=== PATIENT | male | born 1975 | race Caucasian/White ===

== ENCOUNTER → 2016-09-27 | Outpatient (CLI) | payer OTHER ==
[~2016-09-27] MED LIST: ARIP1TAB8 PO; DIAZ10TA PO; MELA1TAB5 PO; OMEP40CA41 PO; QUET1TAB37 PO
--- NOTE | 2016-09-27 08:02 | DIAGNOSTIC IMAGING REPORT ---
MRI OF THE BRAIN WITHOUT IV CONTRAST CLINICAL HISTORY: Headache. Dizziness. Dyspnea on exertion. COMPARISON STUDY: No priors. TECHNIQUE: MRI of the brain was performed utilizing various T1 and T2-weighted sequences in the axial, sagittal, and coronal planes. IV contrast was not administered for this examination. FINDINGS: Brain parenchyma: The brain parenchyma is normal in appearance. There is no hemorrhage or mass effect. There is no restricted diffusion to suggest acute ischemia. Awan-white matter differentiation is preserved. No extra-axial fluid collection is seen. The cerebellar tonsils are normal in configuration. Ventricles, sulci, and cisterns: Normal in configuration. Pituitary and sella: Unremarkable. Intracranial vasculature: Normal flow voids are maintained at the skull base. Orbits: The bony orbits are grossly intact. Orbital contents are normal in appearance. Sinuses and mastoids: Clear. Calvarium: Unremarkable. Cervical cord: Partially visualized cervical spinal cord is normal in morphology and signal intensity. IMPRESSION: No acute intracranial abnormality. Electronically signed by: Smith Zamudio M.D. 09/27/2016 8:00 AM Dictated Date/Time: 09/27/2016 7:58 AM
--- NOTE | 2016-09-27 08:53 | DIAGNOSTIC IMAGING REPORT ---
ABDOMEN COMPLETE (US) CLINICAL HISTORY: Hepatitis C. COMPARISON STUDY: No previous studies for comparison. FINDINGS: Liver morphology is normal. No hepatic lesions are identified by sonography. The gallbladder is partially contracted. There are no gallstones. The pancreas is sonographically normal. Caliber of the common bile duct is at the upper limits of normal. There is no intrahepatic biliary ductal dilatation. The size of the spleen is normal. The right kidney measures 10.9 cm in maximal dimension and the left measures 12.2 cm. There is no hydronephrosis. There are suspected bilateral renal calculi which measure up to approximately 6 mm. The caliber of the abdominal aorta is normal. Visualized portions of the IVC are patent. There is no ascites. IMPRESSION: 1. No gallstones or biliary ductal dilatation. 2. Normal liver morphology. No hepatic lesions identified by sonography. 3. Suspected bilateral nephrolithiasis. Electronically signed by: Hai Turner M.D. 09/27/2016 8:51 AM Dictated Date/Time: 09/27/2016 8:48 AM
--- NOTE | 2016-09-27 09:07 | DIAGNOSTIC IMAGING REPORT ---
DOPPLER ULTRASOUND OF THE MAJOR HEPATIC VESSELS CLINICAL HISTORY: Hepatitis C. COMPARISON STUDY: No previous studies for comparison. TECHNIQUE: Color duplex Doppler sonography of the major hepatic vessels was performed. FINDINGS: The main, left and right portal veins are patent with appropriately directed flow. The middle, left and right hepatic veins are patent with appropriate phasicity. The hepatic artery is patent. IMPRESSION: Patent major hepatic vessels with appropriately directed flow. Electronically signed by: Hai Turner M.D. 09/27/2016 9:05 AM Dictated Date/Time: 09/27/2016 9:04 AM
--- NOTE | 2016-09-28 13:37 | MYOCARDIAL PERFUSION SCAN ---
ONE-DAY NUCLEAR MEDICINE TECHNETIUM-99M CARDIOLITE MYOCARDIAL PERFUSION SCAN CLINICAL HISTORY: The patient presents for stress testing due to exertional dyspnea. COMPARISON: None. TECHNIQUE: For the stress portion of the study, 31.6 mCi of Technetium 99 m Cardiolite IV was injected at 11:40 a.m. on 09/27/2016. Fifteen minutes following the injection, imaging of the heart was performed in multiple projections. For the rest portion of the study, 11.0 mCi of Technetium 99 m Cardiolite was injected IV at 9:30 a.m. One hour following the injection, imaging of the heart was performed in the same projections. EXERCISE TREADMILL TESTING: The patient exercised for 3 minutes on a standard Mark protocol attaining 4.6 METS and a peak heart rate of 134 beats per minute (75% predicted maximum). The test was terminated due to dyspnea. The patient did not experience chest discomfort. Initial blood pressure was 110/75 and this increased to 140/75 at peak exertion. Baseline EKG shows normal sinus rhythm with repolarization changes. There are no ST segment changes seen with exercise. There are no dysrhythmias. FINDINGS: The short axis, vertical long axis, horizontal long axis images were reviewed in detail. There is normal myocardial perfusion at both stress and rest excluding a prior myocardial infarction and stress induced myocardial ischemia. The left ventricle demonstrates normal systolic function without wall motion abnormalities. An ejection fraction is calculated at 68%. IMPRESSION: 1. No scintigraphic evidence of a myocardial infarction or stress-induced myocardial ischemia. 2. Limited exercise tolerance. 3. Exercise limited by dyspnea. 4. No EKG changes. 5. Normal left ventricle systolic function without wall motion abnormality. Left ventricular ejection fraction is 68%.
== END | disposition home or self-care (01) ==
LOC: C.MRI 07:14
PROVIDERS: ATTEND Family Medicine
DX: B19.20 Unspecified viral hepatitis C without hepatic coma (principal); R06.09 Other forms of dyspnea; R51 Headache

== ENCOUNTER 2016-11-01 13:44 | Emergency (ER) | payer OTHER ==
[~2016-11-01] VITALS: Ht 177.8 cm; Wt 62.2 kg
[2016-11-01 14:01] VITALS: TEMP 36.3; Ht 177.8 cm; Wt 62.2 kg
[2016-11-01] MEDS ORDERED: SODIUM CHLORIDE 0.9% 1000ML 1,000 ML IV STA (14:28)
[2016-11-01] MEDS ORDERED: DiphenhydrAMINE HCL 50 MG/ML VIAL IV STA (14:28)
[2016-11-01] MEDS ORDERED: PROCHLORPERAZINE 5 MG/ML 2 ML VIAL IV STA (14:28)
[2016-11-01] MEDS ORDERED: OPTIRAY 320 IV PRN (14:45)
[2016-11-01 14:55] LABS: BASO % 0.4 %; BASO ABS # 0.03 K/uL (0-0.2); COMPLETE YES; HEMATOCRIT 43.2 % (42-52); IG% 0.1 %; LYMPH % 28.1 %; LYMPH ABS # 2.01 K/uL (1.2-3.4); MEAN CORPUSCULAR HEMOGLOBIN 35.4 pg (25-34); MEAN CORPUSCULAR HGB CONC 36.1 g/dl (32-36); MEAN PLATELET VOLUME 9.8 fL (7.4-10.4); MONO % 6.3 %; NEUT % 64.1 %; PLATELET COUNT 163 K/uL (130-400); RED BLOOD COUNT 4.41 M/uL (4.7-6.1); WHITE BLOOD COUNT 7.15 K/uL (4.8-10.8)
[2016-11-01 15:13] LABS: BUN/CREATININE RATIO 14.8 (10-20); C-REACTIVE PROTEIN 0.38 mg/dl (0-0.29); CALCIUM 9.2 mg/dl (8.5-10.1); CREATININE 0.83 mg/dl (0.60-1.40); MAGNESIUM 2.3 mg/dl (1.8-2.4); POTASSIUM 4.2 mmol/L (3.5-5.1)
[2016-11-01 15:19] LABS: INR 1.1 (0.9-1.1); PARTIAL THROMBOPLASTIN RATIO 1.2; PROTHROMBIN TIME (PATIENT) 11.5 SECONDS (9.0-12.0)
[2016-11-01] MEDS ORDERED: ARIP1TAB8 PO (15:49)
[2016-11-01] MEDS ORDERED: QUET1TAB37 PO (15:49)
[2016-11-01] MEDS ORDERED: DIAZ10TA PO (15:49)
[2016-11-01] MEDS ORDERED: MELA1TAB5 PO (15:49)
[2016-11-01] MEDS ORDERED: OMEP40CA41 PO (15:49)
--- NOTE | 2016-11-01 15:51 | DIAGNOSTIC IMAGING REPORT ---
CT OF THE ABDOMEN AND PELVIS WITH CONTRAST CLINICAL HISTORY: Abdominal pain, nausea and fatigue. COMPARISON STUDY: Abdominal ultrasound September 27, 2016. TECHNIQUE: Following IV administration of 115 mL of Optiray-320, axial images of the abdomen and pelvis were obtained from the lung bases to the proximal femurs. Images were reviewed in the axial, sagittal, and coronal planes. IV contrast was administered without complication. CT DOSE: 276.29 mGy.cm FINDINGS: Lung bases are clear. There is no pneumatosis, free air or portal venous gas. The liver morphology is normal. Note is made of a 2.2 cm subcapsular hypodense segment 7 hepatic lesion. There is also a 1.2 cm subcapsular segment 3 hepatic lesion. These lesions were not evident by ultrasound on September 27, 2016. The spleen, adrenal glands and pancreas are unremarkable. Several bilateral renal calculi measure up to 6 mm. There are no ureteral calculi. There is no hydronephrosis. A 9 mm hypodense lesion within the right kidney is too small to characterize but likely benign. There is no evidence for a bowel obstruction. The appendix is normal. No ascites is present. There is no lymphadenopathy. There is near complete ankylosis of the sacroiliac joints with anterior osteophytosis within visualized portions of the spine. IMPRESSION: 1. No acute process within the abdomen or pelvis. 2. Ankylosis of the sacroiliac joints with anterior osteophytosis of the spine. The findings suggest ankylosing spondylitis. 3. Bilateral nephrolithiasis. No ureteral calculi. 4. 2 hypodense hepatic lesions, as described above. These may reflect hemangiomas although are indeterminate. A follow-up nonemergent MRI of the liver is recommended. Electronically signed by: Hai Turner M.D. 11/01/2016 3:49 PM Dictated Date/Time: 11/01/2016 3:36 PM
[2016-11-01 16:00] LABS: MANUAL MICROSCOPIC REQUIRED? NO; REVIEW REQ? NO; URINE APPEARANCE CLOUDY (CLEAR); URINE BILIRUBIN NEG (NEG); URINE COLOR YELLOW; URINE EPITHELIAL CELL AUTO 0-5 /lpf (0-5); URINE NITRITE NEG (NEG); URINE PH 8.5 (4.5-7.5); URINE SPECIFIC GRAVITY > 1.045 (1.000-1.030); UROBILINOGEN NEG (NEG); ZZUR CULT IF INDIC CLEAN CATCH NO
[2016-11-01 16:18] LABS: BENZODIAZEPINE, URINE POS (NEG); COCAINE,URINE NEG (NEG); PHENCYCLIDINE, URINE NEG (NEG)
--- NOTE | 2016-11-01 16:25 | EMERGENCY ROOM VISIT NOTE ---
History First contact with patient: 14:22 Chief Complaint: ABDOMINAL PAIN Stated Complaint: ABD. PAIN W/NAUSEA AND FATIGUE Nursing Triage Summary: Patient states has been experiencing N/V and abdominal pain for >1 month, which has been worse the last two days. Patient states pain can be intermittently sharp. Denies diarrhea, states stools have been loose. Patient has not eaten today. History of Present Illness The patient is a 41 year old male who presents to the Emergency Department by private vehicle for evaluation of his ongoing abdominal pain. The patient reports that he's had abdominal pain for the past few months. He was evaluated by his primary care provider out of [facility] for his ongoing symptoms. He has scale operator that he sees for hepatitis C as well. He recently went through treatment for cure of hepatitis C. In addition, the patient has recently had ultrasound of his liver as well as imaging studies of his chest for evaluation of weakness and shortness of breath. He reports the symptoms have not worsened. The patient complains of pain to the RIGHT-sided abdomen. He reports no previous surgeries to his abdomen. He rates his current discomfort as a 0/10. Patient denies any headaches, distance, light headedness, chest pain, palpitations, hemoptysis, nausea, vomiting, hematochezia , melena, hematuria, or dysuria. Review of Systems A complete 10-point Review of Systems was discussed with the patient, with pertinent positives and negatives listed in the History of Present Illness. All remaining Review of Systems questions can be considered negative unless otherwise specified. Social History Smoking Status: Current Every Day Smoker Smokeless Tobacco Use: No Marital Status: in relationship Current/Historical Medications Scheduled Aripiprazole (Abilify), 50 MG PO DAILY Melatonin ( Melatonin), 1 TAB PO HS Omeprazole (Prilosec), 40 MG PO DAILY Quetiapine Fumarate (Seroquel), 300 MG PO HS Scheduled PRN Diazepam (Valium), 10 MG PO TID PRN for PRN Allergies Coded Allergies: Aspirin (Verified Allergy, Unknown, ., 11/01/16) Physical Exam Vital Signs Date Time Temp Pulse Resp B/P Pulse Ox O2 Delivery O2 Flow Rate FiO2 11/01/16 17:00 79 18 120/84 99 11/01/16 15:21 81 18 135/77 98 Room Air 11/01/16 14:01 36.3 87 16 128/89 99 Room Air Pain Rating (0-10): 8 Physical Exam VITAL SIGNS - Vital signs and nursing notes were reviewed. GENERAL - 41-year-old male appearing his stated age who is in no acute distress. Communicates well with provider and answers questions appropriately. LUNGS - Chest wall symmetric without accessory muscle use, intercostals retractions, or central cyanosis. Normal vesicular breath sounds CTA B/L. No wheezes, rales, or rhonchi appreciated. CARDIAC - RRR with S1/S2. No murmur, rubs, or gallops appreciated. ABDOMEN - Abdominal contour flat and without pulsations or visible masses. Negative Po's or Craft [place]'s Signs. BS normoactive all four quadrants. Moderate tenderness to palpation appreciated to the RIGHT sided abdomen. No guarding. No Rebound Tenderness. Negative Rovsing's. Negative Chao's. No palpable masses, hepatosplenomegaly, or ascites noted. PSYCH - A&Ox3 and cooperates fully with examiner. Pt is very pleasant and interacts well with examiner. Medical Decision & Procedures ER Provider Diagnostic Interpretation: Radiological imaging and reports were reviewed by myself. Radiologist's Interpretation as follows: CT OF THE ABDOMEN AND PELVIS WITH CONTRAST CLINICAL HISTORY: Abdominal pain, nausea and fatigue. COMPARISON STUDY: Abdominal ultrasound September 27, 2016. TECHNIQUE: Following IV administration of 115 mL of Optiray-320, axial images of the abdomen and pelvis were obtained from the lung bases to the proximal femurs. Images were reviewed in the axial, sagittal, and coronal planes. IV contrast was administered without complication. CT DOSE: 276.29 mGy.cm FINDINGS: Lung bases are clear. There is no pneumatosis, free air or portal venous gas. The liver morphology is normal. Note is made of a 2.2 cm subcapsular hypodense segment 7 hepatic lesion. There is also a 1.2 cm subcapsular segment 3 hepatic lesion. These lesions were not evident by ultrasound on September 27, 2016. The spleen, adrenal glands and pancreas are unremarkable. Several bilateral renal calculi measure up to 6 mm. There are no ureteral calculi. There is no hydronephrosis. A 9 mm hypodense lesion within the right kidney is too small to characterize but likely benign. There is no evidence for a bowel obstruction. The appendix is normal. No ascites is present. There is no lymphadenopathy. There is near complete ankylosis of the sacroiliac joints with anterior osteophytosis within visualized portions of the spine. IMPRESSION: 1. No acute process within the abdomen or pelvis. 2. Ankylosis of the sacroiliac joints with anterior osteophytosis of the spine. The findings suggest ankylosing spondylitis. 3. Bilateral nephrolithiasis. No ureteral calculi. 4. 2 hypodense hepatic lesions, as described above. These may reflect hemangiomas although are indeterminate. A follow-up nonemergent MRI of the liver is recommended. Laboratory Results 11/01/16 14:42 Red Blood Count 4.41, Mean Corpuscular Volume 98.0, Mean Corpuscular Hemoglobin 35.4, Mean Corpuscular Hemoglobin Concent 36.1, Mean Platelet Volume 9.8, Neutrophils (%) (Auto) 64.1, Lymphocytes (%) (Auto) 28.1, Monocytes (%) (Auto) 6.3, Eosinophils (%) (Auto) 1.0, Basophils (%) (Auto) 0.4, Neutrophils # (Auto) 4.58, Lymphocytes # (Auto) 2.01, Monocytes # (Auto) 0.45, Eosinophils # (Auto) 0.07, Basophils # (Auto) 0.03 11/01/16 14:42 Test 11/01/16 14:42 11/01/16 14:50 11/01/16 15:45 White Blood Count 7.15 K/uL (4.8-10.8) Red Blood Count 4.41 M/uL (4.7-6.1) Hemoglobin 15.6 g/dL (14.0-18.0) Hematocrit 43.2 % (42-52) Mean Corpuscular Volume 98.0 fL (80-100) Mean Corpuscular Hemoglobin 35.4 pg (25-34) Mean Corpuscular Hemoglobin Concent 36.1 g/dl (32-36) Platelet Count 163 K/uL (130-400) Mean Platelet Volume 9.8 fL (7.4-10.4) Neutrophils (%) (Auto) 64.1 % Lymphocytes (%) (Auto) 28.1 % Monocytes (%) (Auto) 6.3 % Eosinophils (%) (Auto) 1.0 % Basophils (%) (Auto) 0.4 % Neutrophils # (Auto) 4.58 K/uL (1.4-6.5) Lymphocytes # (Auto) 2.01 K/uL (1.2-3.4) Monocytes # (Auto) 0.45 K/uL (0.11-0.59) Eosinophils # (Auto) 0.07 K/uL (0-0.5) Basophils # (Auto) 0.03 K/uL (0-0.2) RDW Standard Deviation 41.9 fL (36.4-46.3) RDW Coefficient of Variation 11.7 % (11.5-14.5) Immature Granulocyte % (Auto) 0.1 % Immature Granulocyte # (Auto) 0.01 K/uL (0.00-0.02) Erythrocyte Sedimentation Rate 31 mm/hr (0-14) Prothrombin Time 11.5 SECONDS (9.0-12.0) Prothromb Time International Ratio 1.1 (0.9-1.1) Activated Partial Thromboplast Time 31.0 SECONDS (21.0-31.0) Partial Thromboplastin Ratio 1.2 Est Creatinine Clear Calc Drug Dose 101.0 ml/min Estimated GFR () 124.9 Estimated GFR (Non- 107.8 BUN/Creatinine Ratio 14.8 (10-20) Calcium Level 9.2 mg/dl (8.5-10.1) Magnesium Level 2.3 mg/dl (1.8-2.4) Total Bilirubin 0.5 mg/dl (0.2-1) Aspartate Amino Transf (AST/SGOT) 17 U/L (15-37) Alanine Aminotransferase (ALT/SGPT) 18 U/L (12-78) Alkaline Phosphatase 111 U/L (45-117) C-Reactive Protein 0.38 mg/dl (0-0.29) Total Protein 8.6 gm/dl (6.4-8.2) Albumin 4.2 gm/dl (3.4-5.0) Globulin 4.4 gm/dl (2.5-4.0) Albumin/Globulin Ratio 1.0 (0.9-2) Lipase 173 U/L (73-393) Bedside Hemoglobin 16.0 g/dl (14.0-18.0) Bedside Hematocrit 47 % (42-52) Bedside Sodium 139 mEq/L (135-144) Bedside Potassium 4.3 mEq/L (3.3-5.0) Bedside Chloride 101 mEq/L (101-112) Bedside Total CO2 26 mEq/l (24-31) Anion Gap 17.0 mmol/L (16-25) Bedside Blood Urea Nitrogen 13 mg/dl (7-18) Bedside Creatinine 0.7 mg/dl (0.6-1.3) Bedside Glucose (other) 96 mg/dl (70-99) Bedside Ionized Calcium (Dwight) 1.16 mmol/l (1.12-1.32) Urine Color YELLOW Urine Appearance CLOUDY (CLEAR) Urine pH 8.5 (4.5-7.5) Urine Specific [place] > 1.045 (1.000-1.030) Urine Protein NEG (NEG) Urine Glucose (UA) NEG (NEG) Urine Ketones NEG (NEG) Urine Occult Blood NEG (NEG) Urine Nitrite NEG (NEG) Urine Bilirubin NEG (NEG) Urine Urobilinogen NEG (NEG) Urine Leukocyte Esterase NEG (NEG) Urine WBC (Auto) 1-5 /hpf (0-5) Urine RBC (Auto) 0-4 /hpf (0-4) Urine Hyaline Casts (Auto) 0 /lpf (0-5) Urine Epithelial Cells (Auto) 0-5 /lpf (0-5) Urine Bacteria (Auto) NEG (NEG) Urine Opiates Screen POS (NEG) Urine Methadone, Qualitative NEG (NEG) Urine Barbiturates NEG (NEG) Urine Phencyclidine (PCP) Level NEG (NEG) Ur Amphetamine/Methamphetamine NEG (NEG) MDMA (Ecstasy) Screen NEG (NEG) Urine Benzodiazepines Screen POS (NEG) Urine Cocaine Metabolite NEG (NEG) Urine Marijuana (THC) POS (NEG) Medications Administered Medications (Trade) Dose Ordered Sig/Angela Route Start Time Stop Time Status Last Admin Dose Admin Sodium Chloride (Nss 1000ml) 1,000 ml @ 125 mls/hr Q8H STAT IV 11/01/16 14:28 11/01/16 17:17 DC 11/01/16 14:59 125 MLS/HR Prochlorperazine Edisylate (Compazine Inj) 10 mg NOW STAT IV 11/01/16 14:28 11/01/16 14:32 DC 11/01/16 14:59 10 MG Diphenhydramine HCl (Benadryl Inj) 25 mg NOW STAT IV 11/01/16 14:28 11/01/16 14:32 DC 11/01/16 14:59 25 MG ED Course Patient was seen and evaluate by myself. Labs were drawn, saline lock in place. [place] drug monitoring program website was reviewed. Patient was treated with 10 mg Compazine and 25 mg Benadryl intravenously as well as a normal saline bolus. CT of the abdomen and pelvis with IV contrast was ordered. Laboratory results demonstrate no acute leukocytosis, worrisome anemia , or bandemia. The patient has no significant electrolyte abnormalities. CT results above. Patient's urinalysis was unremarkable. Urine drug screen was positive for opiates as well as benzodiazepines and marijuana. Laboratory results and imaging studies were reviewed with the patient who acknowledges understanding. The patient was encouraged to follow-up with his specialists from today's visit. He was educated on worrisome symptoms for return visit to the emergency part. Patient discharged home afebrile and in good condition. Medical Decision Given the patient's presentation and stated complaint, I did elect to perform the above-mentioned workup. The patient presents today with ongoing symptoms of abdominal pain. He has no fever leukocytosis. He has tenderness to palpation to the RIGHT-sided abdomen. The patient is certain a suspicious and that he has been seen in multiple facilities throughout the [facility]. He has had multiple prescription medications for narcotics as well as benzodiazepines. I was not comfortable providing him narcotic pain medication for his ongoing symptoms of pain. He was treated with Compazine and Benadryl as well as normal saline. His CT was otherwise unremarkable. The patient will follow closely with his specialists from today's visit. He'll return to the emergency department is any change or worsening symptoms. Patient discharged home afebrile and in good condition. In the evaluation and treatment of this patient, the following differential diagnoses were considered: Appendicitis, Diverticulitis, Diverticulosis, Colitis , Ischemic Colitis, Inflammatory Bowel Disease, Irritable Bowel Disease, Testicular Torsion, Kidney Stone, Pyelonephritis, Hydronephrosis, Cholecystitis , Ascending Cholangitis, Choledocholithiasis, GERD. Impression Primary Impression: Abdominal pain Departure Information Dispostion Home / Self-Care Condition GOOD Referrals Leah. Givens MD (PCP) Patient Instructions My [facility] Additional Instructions You have been treated in the Emergency Department your Abdominal Pain. Laboratory results and imaging studies have ruled out any emergent causes for your abdominal pain which would warrant admission or surgery. For pain control, you can use the following [id number] medicines (if >12 yo): - Regular strength (325mg/tab) Tylenol (acetaminophen) 2 tabs every 4-6 hours as needed. Do not exceed 12 tablets in a 24 hour period. Avoid taking more than 4 grams (4000 mg) of Tylenol per day. This includes any other sources of acetaminophen you may take on a regular basis. - Regular strength (200 mg/tab) Advil (ibuprofen) 1-2 tabs every 4-6 hours as needed. Do not exceed a dose of 3200 mg per day. Drink plenty of water and stay well hydrated. As with any trip to the Emergency Department, you should follow-up with your Primary Care Provider from today's visit. Return to the emergency department if your symptoms persist despite treatment plan outlined above or if the following symptoms occur: increased fevers, chills , worsening nausea/vomiting, blood in your stool or urine. Problem Qualifiers Primary Impression: Abdominal pain Abdominal location: right lower quadrant Qualified Codes: R10.31 - Right lower quadrant pain
[2016-11-01 17:00] VITALS: BP 120/84; PULSE 79; O2SAT 99
[2016-11-02 08:51] LABS: ISTAT CREATININE 0.7 mg/dl (0.6-1.3); ISTAT IONIZED CALCIUM 1.16 mmol/l (1.12-1.32)
[2016-11-05 14:07] LABS: COD UR NEGATIVE NG/ML (CUTOFF=50); HYDROCOD UR 85 NG/ML (CUTOFF=50); HYDROMOR UR NEGATIVE NG/ML (CUTOFF=50); HYDROXYETHYLFLURAZEPAM CONF NEGATIVE NG/ML (CUTOFF=50); HYDROXYMIDAZOLAM NEGATIVE NG/ML (CUTOFF=50); HYDROXYTRIAZOLAM CONF NEGATIVE NG/ML (CUTOFF=50); MORPHINE UR NEGATIVE NG/ML (CUTOFF=50); NORHYDROCODONE CONF UR 204 NG/ML (CUTOFF=50); OXYMORPH UR NEGATIVE NG/ML (CUTOFF=50); TEMAZEPAM CONF 321 NG/ML (CUTOFF=50)
== END 2016-11-01 17:03 | disposition home or self-care (01) ==
LOC: C.EDB 13:45
DX: R10.31 Right lower quadrant pain (principal); F17.200 Nicotine dependence, unspecified, uncomplicated

== ENCOUNTER → 2016-11-16 | Outpatient (CLI) | payer OTHER ==
[~2016-11-16] MED LIST changes: +GADOXETATE DISODIUM IV PRN
--- NOTE | 2016-11-16 07:49 | DIAGNOSTIC IMAGING REPORT ---
MRI LIVER COMBO CLINICAL HISTORY: Hepatic mass TECHNIQUE: Imaging was performed prior to and following IV contrast injection. COMPARISON STUDY: CT scan of the abdomen pelvis dated 11/01/2016 FINDINGS: Imaging was performed in the axial and coronal planes. Imaging was performed before and after the administration of 10 cc of intravenous Eovist. There are 4 T2 bright hepatic lesions. The largest is located within the right lobe posteriorly measuring 21 mm. The second largest is located within the left lobe anteriorly. The central 12 mm lesion demonstrates intense early arterial enhancement without washout. This is suggestive a flash filling hemangioma. The other lesions demonstrate minimal enhancement. They do not demonstrate pathognomonic nodular peripheral enhancement, and therefore they do not meet the diagnostic criteria for hemangiomas. The lesions do not have enhancement characteristics typical for hepatocellular carcinomas. The lesions are however indeterminate and a 6 month follow-up study is recommended. No splenic masses are visualized. No pancreatic masses are visualized. There is no ductal dilatation. There is an 8 mm right renal cyst. There are no MRI findings to indicate hepatic cirrhosis. No adrenal masses are visualized. There is no abdominal aortic dilatation. There is no evidence of pathologic adenopathy. IMPRESSION: 1.Four hepatic masses are visualized. The central lesion appears represent flash filling hemangioma. The other 3 lesions remain indeterminate on MRI evaluation. 6 month follow-up imaging is recommended. Electronically signed by: Rufino Browning M.D. 11/16/2016 7:47 AM Dictated Date/Time: 11/16/2016 7:30 AM
== END | disposition home or self-care (01) ==
LOC: C.MRI 06:12
PROVIDERS: ATTEND Family Medicine
DX: K76.9 Liver disease, unspecified (principal)